=== PATIENT | female | born 1960 | race African-American/Black ===

== ENCOUNTER 2021-04-13 09:49 | Emergency (ER) | payer OTHER ==
[~2021-04-13] VITALS: Ht 160 cm; Wt 84.8 kg
[~2021-04-13 09:49] MED LIST: ATOR10TA OR; METF-370
[2021-04-13 11:55] VITALS: BP 151/63
[2021-04-13] MEDS ORDERED: ONDANSETRON ODT 4 MG TAB PO ONE (12:15)
[2021-04-13] MEDS ORDERED: HYDROcodone-ACET 10/325MG TAB PO ONE (12:15)
== END 2021-04-13 12:40 | disposition home or self-care (01) ==
LOC: ER 09:49
DX: S63.502A Unspecified sprain of left wrist, initial encounter (principal); E11.9 Type 2 diabetes mellitus without complications; Z79.84 Long term (current) use of oral hypoglycemic drugs; Z79.899 Other long term (current) drug therapy; W01.0XXA Fall on same level from slipping, tripping and stumbling without subsequent striking against object, initial encounter; Y93.89 Activity, other specified; Y92.89 Other specified places as the place of occurrence of the external cause; Y99.8 Other external cause status
CPT/HCPCS: 29125; 73110; 73130; 99284; Q0162

== ENCOUNTER 2023-12-11 17:22 | Emergency (ER) | payer OTHER ==
[~2023-12-11] VITALS: Ht 160 cm; Wt 80.9 kg
[2023-12-11 18:34] VITALS: BP 161/64; PULSE 71; RESP 18; TEMP 97; O2SAT 100
[2023-12-11] MEDS: KETOROLAC TROMETH 30 MG/ML 1ML VIAL IM ONE (19:05)
[2023-12-11] MEDS ORDERED: CYCL-837 PO (19:26)
== END 2023-12-11 19:42 | disposition home or self-care (01) ==
LOC: ER 17:22
DX: M79.18 Myalgia, other site (principal); M25.571 Pain in right ankle and joints of right foot; E11.9 Type 2 diabetes mellitus without complications; Z88.8 Allergy status to other drugs, medicaments and biological substances; W19.XXXA Unspecified fall, initial encounter; Y93.89 Activity, other specified; Y92.89 Other specified places as the place of occurrence of the external cause; Y99.8 Other external cause status
CPT/HCPCS: 73610; 73630; 96372; 99284; J1885

== ENCOUNTER 2024-05-03 13:21 | Emergency (ER) | payer OTHER ==
[~2024-05-03] VITALS: Ht 160 cm; Wt 79.5 kg
[~2024-05-03 13:21] MED LIST changes: +CYCL-837 PO
[2024-05-03 14:19] LABS: Basophils # (auto) 0 10 ^3/uL (0-0.2); Basophils % (auto) 0.3 % (0.0-2.0); Eosinophils # (auto) 0.1 10 ^3/uL (0-0.8); Eosinophils % (auto) 1.3 % (0.0-7.0); Hematocrit 37.3 % (36.0-46.0); Hemoglobin 12.6 g/dL (12.2-16.2); Lymphocytes # (auto) 1.9 10 ^3/uL (0.4-5.4); Lymphocytes % (auto) 40.1 % (10.0-50.0); Mean Corpuscular Hemoglobin 29.1 pg (28.0-32.0); Mean Corpuscular Hgb Conc. 33.7 g/dL (32.0-36.0); Mean Corpuscular Volume 86.3 fL (80.0-100.0); Monocytes # (auto) 0.3 10 ^3/uL (0-1.3); Monocytes % (auto) 5.2 % (0.0-12.0); Neutrophils # (auto) 2.5 10 ^3/uL (1.6-8.6); Neutrophils % (auto) 53.1 % (37.0-80.0); Nucleated Red Blood Cells % 0.1 %; Platelet Count (auto) 297 10^3/uL (140-450); Red Blood Cells 4.32 10^6/uL (4.0-5.20); Red Cell Distribution Width 14.5 % (11.8-14.3); White Blood Cell 4.8 10^3/uL (4.4-10.8)
[2024-05-03 14:32] LABS: Chloride 109 mmol/L (98-107); Potassium 3.8 mmol/L (3.5-5.1); Sodium 144 mmol/L (136-145)
[2024-05-03 14:33] LABS: Anion Gap 8 (5-15); Carbon Dioxide 27 mmol/L (20-31)
[2024-05-03 14:34] LABS: Calcium 10.2 mg/dL (8.7-10.4)
[2024-05-03 14:38] LABS: Glucose 149 mg/dL (74-106)
[2024-05-03 14:39] LABS: BUN/Creatinine Ratio 8.9 (10.0-20.0); Blood Urea Nitrogen 8 mg/dL (9-23)
[2024-05-03] MEDS: ASPirin 325 MG TAB PO ONE (20:06)
[2024-05-03] MEDS: NITROGLYCERIN 0.4 MG SL TAB SL ONE (20:06)
[2024-05-03 20:21] VITALS: BP 139/67; PULSE 55; RESP 18; TEMP 98.3; O2SAT 100
[2024-05-03] MEDS ORDERED: ACETAMINOPHEN 500 MG TAB PO PRN ×3 (23:30→23:45)
[2024-05-03] MEDS ORDERED: MORPHINE SULFATE INJ 2 MG/ml SYRG IV PRN ×3 (23:30→23:45)
[2024-05-03] MEDS ORDERED: NITROGLYCERIN 0.4 MG SL TAB SL PRN ×3 (23:30→23:45)
== END 2024-05-03 23:25 | disposition home or self-care (01) ==
LOC: ER 13:21 → TELE 23:25 → UNDOADMIN 23:25 → ER 23:30 → UNDODISIN 05-04 02:23
DX: R07.89 Other chest pain (principal); I10 Essential (primary) hypertension; E11.9 Type 2 diabetes mellitus without complications; M54.9 Dorsalgia, unspecified; M54.2 Cervicalgia; Z79.84 Long term (current) use of oral hypoglycemic drugs; Z79.899 Other long term (current) drug therapy; Z88.8 Allergy status to other drugs, medicaments and biological substances
CPT/HCPCS: 36415; 80048; 84484; 85025; 93005; 99291; G0378